=== PATIENT | male | born 1955 | race Caucasian/White ===

== ENCOUNTER 2020-10-26 11:39 | Observation (INO) | payer OTHER ==
--- NOTE | 2020-10-26 12:12 | XR ---
EXAMINATION TYPE: XR chest 2V DATE OF EXAM: 10/26/2020 COMPARISON: NONE TECHNIQUE: PA and lateral views submitted. HISTORY: Chest pain FINDINGS: Limited inspiration with volume reduction. There is patchy left lower lobe infiltrate. No overt failu re or pneumothorax. No sizable pleural effusion. Hypertrophic and degenerative change of the spine. IMPRESSION: 1. Patchy left lower lobe infiltrate.
--- NOTE | 2020-10-26 12:17 | ED ---
General Adult HPI - General Chief complaint: Chest Pain Stated complaint: Chest Pain Time Seen by Provider: 10/26/20 11:50 Source: patient, RN notes reviewed, old records reviewed Mode of arrival: ambulatory Limitations: no limitations - History of Present Illness Initial comments: 65-year-old male history of hypertension diabetes and a current smoker p resenting for evaluation of substernal chest pain. Patient describes pain as dull and heaviness. This began about 2 and half hours prior to arrival. He has no previous history of coronary artery disease. He states the pain is improved at the time my evaluation but at its onset it was quite severe. He was given aspirin nitroglycerin by EMS prior to arrival. He had associated nausea without vomiting. No diaphoresis. He had some dyspnea and lightheadedness as well. - Related Data Home Medications Medication Instructions Recorded Confirmed Aspirin EC [Ecotrin Low Dose] 81 mg PO DAILY 10/26/20 10/26/20 Cefdinir 300 mg PO Q12HR 10/26/20 10/26/20 Gabapentin [Neurontin] 600 mg PO BID 10/26/20 10/26/20 Glimepiride [Amaryl] 2 mg PO AC-BRKFST 10/26/20 10/26/20 Latanoprost [Xalatan 0.005%] 1 drop BOTH EYES HS 10/26/20 10/26/20 Metoprolol Succinate [Toprol XL] 25 mg PO DAILY 10/26/20 10/26/20 Pantoprazole Sodium [Protonix] 40 mg PO DAILY 10/26/20 10/26/20 Sertraline [Zoloft] 50 mg PO DAILY 10/26/20 10/26/20 Simvastatin [Zocor] 20 mg PO HS 10/26/20 10/26/20 Tamsulosin [Flomax] 0.4 - 0.8 mg PO HS 10/26/20 10/26/20 lisinopriL [Zestril] 10 mg PO DAILY 10/26/20 10/26/20 metFORMIN HCL [Glucophage] 1,000 mg PO BID 10/26/20 10/26/20 predniSONE [Deltasone] 20 mg PO DAILY 10/26/20 10/26/20 tiZANidine [Zanaflex] 2 - 4 mg PO BID PRN 10/26/20 10/26/20 Allergies Allergy/AdvReac Type Severity Reaction Status Date / Time No Known Allergies Allergy Verified 10/26/20 13:37 Review of Systems ROS Statement: Those systems with pertinent positive or pertinent negative responses have been documented in the HPI. ROS Other: All systems not noted in ROS Statement are negative. Past Medical History Past Medical History: Atrial Fibrillation, Cancer, Diabetes Mellitus, Hypertension Additional Past Medical History / Comment(s): CA -kidneys History of Any Multi-Drug Resistant Organisms: None Reported Past Surgical History: Ablation, Cholecystectomy, Joint Replacement Past Psychological History: Anxiety Smoking Status: Current some day smoker Past Alcohol Use History: Rare General Exam Limitations: no limitations General appearance: alert, in no apparent distress Head exam: Present: atraumatic, normocephalic Eye exam: Present: normal appearance, PERRL ENT exam: Present: normal exam Neck exam: Present: normal inspection. Absent: tenderness, meningismus Respiratory exam: Present: normal lung sounds bilaterally. Absent: respiratory distress, wheezes Cardiovascular Exam: Present: regular rate, normal rhythm GI/Abdominal exam: Present: soft. Absent: distended, tenderness Extremities exam: Present: normal inspection, normal capillary refill. Absent: pedal edema, calf tenderness Neurological exam: Present: alert, oriented X3, CN II-XII intact. Absent: motor sensory deficit Psychiatric exam: Present: normal affect, normal mood Skin exam: Present: warm, dry, intact. Absent: cyanosis, diaphoretic Course Vital Signs 10/26/20 10/26/20 10/26/20 11:46 13:30 13:57 Pulse Rate 81 66 81 Respiratory 18 18 18 Rate Blood Pressure 114/70 145/64 121/82 O2 Sat by Pulse 98 99 99 Oximetry - Reevaluation(s) Reevaluation #1: 10/26/20 14:39 Patient recently drove from [place]. In the setting of prolonged sitting and high elevated d-dimer, CT angiography is performed which is negative for pulmonary embolism, does show pulmonary nodules with which will require follow-up as well as question of pneumonia. Patient had no preceding cough and dyspnea. No fever. No leukocytosis. Coronavirus test will be performed. EKG Findings - EKG Comments: EKG Findings:: Normal sinus rhythm with arrhythmia, right bundle branch block left anterior fascicular block no ST segment elevation. Ventricular rate of 88, [place] interval 166, QRS duration 124, QTC 515 Medical Decision Making - Medical Decision Making 65-year-old male with an episode of chest pain. Resolved on reevaluation in the emergency department. Workup reveals normal white blood cell count, so hemoglobin 12 with no baseline for comparison. He has a high elevated d-dimer and CT angiography was performed. His magnesium is 1.2 which is replaced. Troponin is negative. He had been given aspirin nitroglycerin by EMS prior to arrival. He will be continued on aspirin. He will be admitted for serial cardiac enzymes, telemetry, cardiology consultation. Case discussed with Dr. Armenta will admit. - Lab Data Result diagrams: 10/26/20 11:57 10/26/20 11:57 Lab Results 10/26/20 10/26/20 10/26/20 Range/Units 11:57 11:57 11:57 WBC 5.2 (3.8-10.6) k/uL RBC 4.40 (4.30-5.90) m/uL Hgb 12.0 L (13.0-17.5) gm/dL Hct 36.7 L (39.0-53.0) % MCV 83.3 (80.0-100.0) fL MCH 27.1 (25.0-35.0) pg MCHC 32.6 (31.0-37.0) g/dL RDW 16.4 H (11.5-15.5) % Plt Count 106 L (150-450) k/uL MPV 9.0 Neutrophils % 85 % Lymphocytes % 9 % Monocytes % 3 % Eosinophils % 3 % Basophils % 0 % Neutrophils # 4.4 (1.3-7.7) k/uL Lymphocytes # 0.5 L (1.0-4.8) k/uL Monocytes # 0.2 (0-1.0) k/uL Eosinophils # 0.1 (0-0.7) k/uL Basophils # 0.0 (0-0.2) k/uL Anisocytosis Slight PT 11.0 (9.0-12.0) sec INR 1.0 (<1.2) APTT 21.1 L (22.0-30.0) sec D-Dimer 14.57 H (<0.60) mg/L FEU Sodium 136 L (137-145) mmol/L Potassium 3.8 (3.5-5.1) mmol/L Chloride 105 (98-107) mmol/L Carbon Dioxide 24 (22-30) mmol/L Anion Gap 7 mmol/L BUN 16 (9-20) mg/dL Creatinine 1.08 (0.66-1.25) mg/dL Est GFR (CKD-EPI)AfAm 84 (>60 ml/min/1.73 sqM) Est GFR (CKD-EPI)NonAf 73 (>60 ml/min/1.73 sqM) Glucose 142 H (74-99) mg/dL Calcium 8.1 L (8.4-10.2) mg/dL Magnesium 1.2 L (1.6-2.3) mg/dL Total Bilirubin 0.4 (0.2-1.3) mg/dL AST 36 (17-59) U/L ALT 22 (4-49) U/L Alkaline Phosphatase 95 (38-126) U/L Troponin I (0.000-0.034) ng/mL NT-Pro-B Natriuret Pep pg/mL Total Protein 5.5 L (6.3-8.2) g/dL Albumin 2.9 L (3.5-5.0) g/dL Lipase 60 (23-300) U/L 10/26/20 10/26/20 Range/Units 11:57 11:57 WBC (3.8-10.6) k/uL RBC (4.30-5.90) m/uL Hgb (13.0-17.5) gm/dL Hct (39.0-53.0) % MCV (80.0-100.0) fL MCH (25.0-35.0) pg MCHC (31.0-37.0) g/dL RDW (11.5-15.5) % Plt Count (150-450) k/uL MPV Neutrophils % % Lymphocytes % % Monocytes % % Eosinophils % % Basophils % % Neutrophils # (1.3-7.7) k/uL Lymphocytes # (1.0-4.8) k/uL Monocytes # (0-1.0) k/uL Eosinophils # (0-0.7) k/uL Basophils # (0-0.2) k/uL Anisocytosis PT (9.0-12.0) sec INR (<1.2) APTT (22.0-30.0) sec D-Dimer (<0.60) mg/L FEU Sodium (137-145) mmol/L Potassium (3.5-5.1) mmol/L Chloride (98-107) mmol/L Carbon Dioxide (22-30) mmol/L Anion Gap mmol/L BUN (9-20) mg/dL Creatinine (0.66-1.25) mg/dL Est GFR (CKD-EPI)AfAm (>60 ml/min/1.73 sqM) Est GFR (CKD-EPI)NonAf (>60 ml/min/1.73 sqM) Glucose (74-99) mg/dL Calcium (8.4-10.2) mg/dL Magnesium (1.6-2.3) mg/dL Total Bilirubin (0.2-1.3) mg/dL AST (17-59) U/L ALT (4-49) U/L Alkaline Phosphatase (38-126) U/L Troponin I <0.012 (0.000-0.034) ng/mL NT-Pro-B Natriuret Pep 373 pg/mL Total Protein (6.3-8.2) g/dL Albumin (3.5-5.0) g/dL Lipase (23-300) U/L Disposition Clinical Impression: Chest pain Disposition: ADMITTED IP TO THIS [facility] Condition: Stable Is patient prescribed a controlled substance at d/c from ED?: No Referrals: Nonstaff,Physician [Primary Care Provider] - 1-2 days Decision to Admit Reason: Admit from EC Decision Date: 10/26/20 Decision Time: 14:41
[2020-10-26 12:18] LABS: Albumin 2.9 g/dL (3.5-5.0); Calcium 8.1 mg/dL (8.4-10.2); Magnesium 1.2 mg/dL (1.6-2.3); Potassium 3.8 mmol/L (3.5-5.1); Total Bilirubin 0.4 mg/dL (0.2-1.3); Total Protein 5.5 g/dL (6.3-8.2)
[2020-10-26 12:36] LABS: Anisocytosis Slight; Basophils % (A) 0 %; Eosinophils # (A) 0.1 k/uL (0-0.7); Eosinophils % (A) 3 %; HCT 36.7 % (39.0-53.0); Lymphocytes # (A) 0.5 k/uL (1.0-4.8); Lymphocytes % (A) 9 %; MCH 27.1 pg (25.0-35.0); MCHC 32.6 g/dL (31.0-37.0); MCV 83.3 fL (80.0-100.0); Monocytes # (A) 0.2 k/uL (0-1.0); Monocytes % (A) 3 %; Neutrophils # (A) 4.4 k/uL (1.3-7.7); Neutrophils % (A) 85 %; Platelet Count 106 k/uL (150-450); RDW 16.4 % (11.5-15.5); WBC 5.2 k/uL (3.8-10.6)
[2020-10-26 12:46] LABS: D-Dimer 14.57 mg/L FEU (<0.60); Partial Thromboplastin Time 21.1 sec (22.0-30.0)
--- NOTE | 2020-10-26 14:15 | CT ---
EXAMINATION TYPE: CT angio chest DATE OF EXAM: 10/26/2020 1:32 PM COMPARISON: None HISTORY: Chest pain, HELIO CT DLP: 534.8 mGycm Automated exposure control for dose reduction was used. CONTRAST: CTA scan of the thorax is performed with IV Contrast, patient injected with 75 mL of Isovue 370, pulm onary embolism protocol. . FINDINGS: LUNGS: Patchy infiltrate in the lingular segment of the left upper lobe and bilateral subsegmental lo wer lobe consolidation. No pleural effusion or pneumothorax. There is a subpleural nodule measuring 6 mm in the anterior segment of the right upper lobe which is indeterminate. Additional 2 mm nodule guo perior segment right lower lobe axial image 59. MEDIASTINUM: There is satisfactory enhancement of the pulmonary artery and its branches, there is no CT evidence for pulmonary embolism. There are no greater than 1 cm hilar or mediastinal lymph nodes. Coronary artery calcification is seen. There is a trace amount of pericardial fluid. Aorta of normal caliber. OTHER: Hypertrophic and degenerative changes of the spine. IMPRESSION: 1. Patchy bilateral infiltrate correlate for pneumonia or pneumonitis. 2. Subcentimeter pulmonary nodules. Recommend 3 month follow-up CT scan to to assess for stability. 3. Coronary artery calcification correlate clinically.
[2020-10-26] MEDS: MAGNESIUM SULFATE-D5W PMX 1 GM in DEXTROSE/WATER 1 100ML.BAG IVPB SCH ×2 (14:26→16:21)
[2020-10-26] MEDS ORDERED: MORPHINE SULFATE 4 MG/ML SYRINGE IV PRN (14:38)
[2020-10-26] MEDS ORDERED: NITROGLYCERIN SL TABS 0.4 MG TAB SUBLINGUAL PRN (14:38)
[2020-10-26] MEDS ORDERED: ACETAMINOPHEN TAB 325 MG TAB PO PRN (14:38)
[2020-10-26] MEDS ORDERED: NALOXONE 0.4 MG/ML 1 ML VIAL IV PRN (14:38)
[2020-10-26 14:43] LABS: Glucose,Whole Blood 130 mg/dL (75-99)
--- NOTE | 2020-10-26 15:32 | P.HPIM ---
History of Present Illness H&P Date: 10/26/20 Chief Complaint: Chest pain This is a 65-year-old male with past medical history noted below significant for essential hypertension and type 2 diabetes who presented to the emergency room with chest pain. Patient said that he woke up this morning with pain that he described as heaviness in the middle of his chest with no radiation. Patient denies shortness of breath or diaphoresis. He reported that the pain at worst was 8 out of 10 in severity. Patient denies any prior cardiac history. He said that he had a stress couple of years ago prior to the pandemic that was reported negative to him. He is currently chest pain-free. He was evaluated in the ER and will be placed on observation for further management. Review of Systems Review of system: 14 points review of systems were obtained and were negative except to what were mentioned in the HPI. Past Medical History Past Medical History: Atrial Fibrillation, Cancer, Diabetes Mellitus, Hypertension Additional Past Medical History / Comment(s): CA -kidneys History of Any Multi-Drug Resistant Organisms: None Reported Past Surgical History: Ablation, Cholecystectomy, Joint Replacement Past Psychological History: Anxiety Smoking Status: Current some day smoker Past Alcohol Use History: Rare Medications and Allergies Home Medications Medication Instructions Recorded Confirmed Type Aspirin EC [Ecotrin Low Dose] 81 mg PO DAILY 10/26/20 10/26/20 History Cefdinir 300 mg PO Q12HR 10/26/20 10/26/20 History Gabapentin [Neurontin] 600 mg PO BID 10/26/20 10/26/20 History Glimepiride [Amaryl] 2 mg PO AC-BRKFST 10/26/20 10/26/20 History Latanoprost [Xalatan 0.005%] 1 drop BOTH EYES 10/26/20 10/26/20 History Metoprolol Succinate [Toprol XL] 25 mg PO DAILY 10/26/20 10/26/20 History Pantoprazole Sodium [Protonix] 40 mg PO DAILY 10/26/20 10/26/20 History Sertraline [Zoloft] 50 mg PO DAILY 10/26/20 10/26/20 History Simvastatin [Zocor] 20 mg PO HS 10/26/20 10/26/20 History Tamsulosin [Flomax] 0.4 - 0.8 mg PO HS 10/26/20 10/26/20 History lisinopriL [Zestril] 10 mg PO DAILY 10/26/20 10/26/20 History metFORMIN HCL [Glucophage] 1,000 mg PO BID 10/26/20 10/26/20 History predniSONE [Deltasone] 20 mg PO DAILY 10/26/20 10/26/20 History tiZANidine [Zanaflex] 2 - 4 mg PO BID PRN 10/26/20 10/26/20 History Allergies Allergy/AdvReac Type Severity Reaction Status Date / Time No Known Allergies Allergy Verified 10/26/20 13:37 Physical Exam Vitals: Vital Signs Pulse Resp BP Pulse Ox 10/26/20 14:46 75 18 113/67 98 10/26/20 13:57 81 18 121/82 99 10/26/20 13:30 66 18 145/64 99 10/26/20 11:46 81 18 114/70 98 Intake and Output 10/26/20 10/26/20 10/26/20 06:59 14:59 22:59 Other: Weight 106.594 kg General: The patient is awake and alert, in no distress Eye: there is normal conjunctiva bilaterally. Neck: The neck is supple, there is no JVD. Cardiovascular: Normal S1-S2, no S3-S4, no murmurs. Respiratory: Lungs clear to auscultation bilaterally Gastrointestinal: Abdomen is soft, nontender Musculoskeletal: There is no pedal edema. Neurological:. Speech is normal. Skin: Skin is warm and dry Results CBC & Chem 7: 10/26/20 11:57 10/26/20 11:57 Labs: Abnormal Lab Results - Last 24 Hours (Table) 10/26/20 10/26/20 10/26/20 Range/Units 11:57 11:57 11:57 Hgb 12.0 L (13.0-17.5) gm/dL Hct 36.7 L (39.0-53.0) % RDW 16.4 H (11.5-15.5) % Plt Count 106 L (150-450) k/uL Lymphocytes # 0.5 L (1.0-4.8) k/uL APTT 21.1 L (22.0-30.0) sec D-Dimer 14.57 H (<0.60) mg/L FEU Sodium 136 L (137-145) mmol/L Glucose 142 H (74-99) mg/dL POC Glucose (mg/dL) (75-99) mg/dL Calcium 8.1 L (8.4-10.2) mg/dL Magnesium 1.2 L (1.6-2.3) mg/dL Total Protein 5.5 L (6.3-8.2) g/dL Albumin 2.9 L (3.5-5.0) g/dL 10/26/20 Range/Units 14:41 Hgb (13.0-17.5) gm/dL Hct (39.0-53.0) % RDW (11.5-15.5) % Plt Count (150-450) k/uL Lymphocytes # (1.0-4.8) k/uL APTT (22.0-30.0) sec D-Dimer (<0.60) mg/L FEU Sodium (137-145) mmol/L Glucose (74-99) mg/dL POC Glucose (mg/dL) 130 H (75-99) mg/dL Calcium (8.4-10.2) mg/dL Magnesium (1.6-2.3) mg/dL Total Protein (6.3-8.2) g/dL Albumin (3.5-5.0) g/dL Assessment and Plan Assessment: 1. Chest pain: With typical and atypical features. 12-lead EKG showed no acute ischemic changes. Initial troponin is negative. 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 2. Elevated d-dimer, CT angiogram of the chest in the ER shows negative for PE. I would obtain ultrasound of the lower extremity to rule out DVT. 3. Suspected community-acquired pneumonia: With bilateral infiltrate noted on CT. I'll start patient on IV ceftriaxone and azithromycin. Obtain pro- calcitonin. COVID-19 screen negative. 4. Type 2 diabetes hold oral medication and continue sliding scale insulin 5. Tobacco abuse, counseled extensively to quit 6. Essential hypertension: Blood pressure within acceptable range 7. DVT prophylaxis with subcu Lovenox
[2020-10-26] MEDS ORDERED: AZITHROMYCIN 500 MG TAB PO ONE (15:45)
[2020-10-26 17:36] LABS: Glucose,Whole Blood 158 mg/dL (75-99)
--- NOTE | 2020-10-26 17:54 | US ---
EXAMINATION TYPE: US venous doppler duplex LE DATE OF EXAM: 10/26/2020 3:29 PM COMPARISON: NONE CLINICAL HISTORY: Elevated d-dimer. Exam done portable. SIDE PERFORMED: Bilateral TECHNIQUE: The lower extremity deep venous system is examined utilizing real time linear array sonog holger with graded compression, doppler sonography and color-flow sonography. VESSELS IMAGED: Common Femoral Vein Deep Femoral Vein Greater Saphenous Vein * Femoral Vein Popliteal Vein Small Saphenous Vein * Proximal Calf Veins (* superficial vessels) Right Leg: Appears negative for DVT Left Leg: Appears negative for DVT IMPRESSION: No evidence of deep vein thrombosis in both legs.
[2020-10-26] MEDS: INSULIN ASPART (NovoLOG) 100 UNIT/ML VIAL SQ SCH ×2 (18:24→20:57)
[2020-10-26 20:03] LABS: Glucose,Whole Blood 180 mg/dL (75-99)
[2020-10-26] MEDS: GABAPENTIN 300 MG CAP PO SCH (20:57)
[2020-10-26] MEDS ORDERED: TAMSULOSIN 0.4 MG CAP.ER.24H PO SCH (21:00)
[2020-10-26] MEDS ORDERED: LATANOPROST 0.005% OPHTH DROPS 2.5 ML BTL BOTH EYES SCH (21:00)
[2020-10-27 07:03] LABS: Glucose,Whole Blood 110 mg/dL (75-99)
[2020-10-27] MEDS ORDERED: PANTOPRAZOLE 40 MG TABLET PO SCH (07:30)
[2020-10-27] MEDS: INSULIN ASPART (NovoLOG) 100 UNIT/ML VIAL SQ SCH ×2 (07:47→12:04)
[2020-10-27 07:58] VITALS: BP 150/77; PULSE 62; RESP 16; TEMP 98.1
[2020-10-27] MEDS: GABAPENTIN 300 MG CAP PO SCH (07:59)
[2020-10-27] MEDS ORDERED: ENOXAPARIN 40 MG/0.4 ML SYRINGE SQ SCH (09:00)
[2020-10-27] MEDS ORDERED: SERTRALINE 50 MG TAB PO SCH (09:00)
[2020-10-27] MEDS ORDERED: lisinopriL 10 MG TAB PO SCH (09:00)
[2020-10-27] MEDS ORDERED: METOPROLOL SUCCINATE (ER) 25 MG TAB.ER.24H PO SCH (09:00)
[2020-10-27] MEDS ORDERED: ASPIRIN 325 MG TAB PO SCH (09:00)
--- NOTE | 2020-10-27 09:59 | P.CRDCN ---
History of Present Illness History of present illness: HISTORY OF PRESENTING ILLNESS This is a pleasant 65-year-old with past medical history significant for hypertension, hyperlipidemia, diabetes mellitus type 2, obesity, occasional tobacco abuse, paroxysmal atrial fibrillation status post ablation. He follows in the office with a loss control manager in [place] as he is from [place] and only here in [place] to visit for a . Patient states she had been feeling in his normal state of health up until yesterday when he started having diarrhea. He states he was placed on antibiotics as well as steroids 2 days ago secondary to mild congestion. He was having diarrhea and upset stomach and then noticed epigastric, lower substernal chest achy sensation. It was associated with some mild nausea and felt somewhat better with a deep breath in. He denies any association with any exertion, no diaphoresis, no shortness breath. He admits to some prior episodes which occur maybe once a year. Normally does not have GERD or upset stomach however he was recently placed on antibiotics. He was given aspirin and nitroglycerin in the EMS without any real response and then chest pain slowly resolved over the course of a few hours and emergency d epartment. He currently denies any chest pain or pressure and states he feels well, back to his normal self. Blood work was performed with normal troponin, elevated d-dimer and therefore CTA was performed. CTA showed bilateral infiltrates concerning for pneumonia or pneumonitis. There is also mention of coronary artery calcification. EKG showed sinus rhythm with right bundle branch block, nonspecific ST, T-wave abnormalities. REVIEW OF SYSTEMS At the time of my exam: CONSTITUTIONAL: Denies fever or chills. CARDIOVASCULAR: +chest pain, no shortness of breath, orthopnea, PND or palpitations. RESPIRATORY: Denies cough. GASTROINTESTINAL: Denies abdominal pain, diarrhea, constipation, nausea or vomiting. MUSCULOSKELETAL: Denies myalgias. NEUROLOGIC: Denies numbness, tingling or weakness. ENDOCRINE: Denies fatigue, weight change, polydipsia or polyurina. GENITOURINARY: Denies burning, hematuria or urgency with micturation. HEMATOLOGIC: Denies history of anemia or bleeding. PHYSICAL EXAMINATION Vital signs reviewed. CONSTITUTIONAL: No apparent distress. HEENT: Head is normocephalic. Pupils are equal, round. Sclerae anicteric. Mucous membranes of the mouth are moist. No JVD. No carotid bruit. CHEST EXAMINATION: Lungs are clear to auscultation. No chest wall tenderness is noted on palpation or with deep breathing. HEART EXAMINATION: Regular rate and rhythm. S1, S2 heard. No murmurs, gallops or rub. ABDOMEN: Soft, nontender. Positive bowel sounds. EXTREMITIES: 2+ peripheral pulses, no lower extremity edema and no calf tenderness. NEUROLOGIC EXAMINATION: Patient is awake, alert and oriented x3. ASSESSMENT 1. Atypical epigastric, lower chest pain likely related to GI source from recent antibiotics, steroids associated with diarrhea. No sign of acute coronary syndrome 2. Diabetes mellitus type 2 3. Coronary artery calcification seen on CTA 4. Bilateral infiltrates concerning for pneumonia versus pneumonitis, on outpatient antibiotics, steroids 5. Essential hypertension 6. Hyperlipidemia 7. Paroxysmal atrial fibrillation status post ablation PLAN Patient's pain is atypical and started with diarrhea and then upset stomach with more epigastric achy sensation improved with deep breaths and. Suspect mainly a GI source related to his recent steroids and antibiotics. He not suspect acute coronary syndrome. Discussed possible stress testing versus outpatient follow- up with stress testing and patient will like to follow up with his loss control manager in [place] which is reasonable. Continue with current medical regimen. OK for discharge from a cardiology standpoint. Past Medical History Past Medical History: Atrial Fibrillation, Cancer, Diabetes Mellitus, Hypertension Additional Past Medical History / Comment(s): CA -kidneys History of Any Multi-Drug Resistant Organisms: None Reported Past Surgical History: Ablation, Cholecystectomy, Joint Replacement Past Anesthesia/Blood Transfusion Reactions: No Reported Reaction Past Psychological History: Anxiety Smoking Status: Current some day smoker Past Alcohol Use History: Rare Medications and Allergies Home Medications Medication Instructions Recorded Confirmed Type Aspirin EC [Ecotrin Low Dose] 81 mg PO DAILY 10/26/20 10/26/20 History Cefdinir 300 mg PO Q12HR 10/26/20 10/26/20 History Gabapentin [Neurontin] 600 mg PO BID 10/26/20 10/26/20 History Glimepiride [Amaryl] 2 mg PO AC-BRKFST 10/26/20 10/26/20 History Latanoprost [Xalatan 0.005%] 1 drop BOTH EYES HS 10/26/20 10/26/20 History Metoprolol Succinate [Toprol XL] 25 mg PO DAILY 10/26/20 10/26/20 History Pantoprazole Sodium [Protonix] 40 mg PO DAILY 10/26/20 10/26/20 History Sertraline [Zoloft] 50 mg PO DAILY 10/26/20 10/26/20 History Simvastatin [Zocor] 20 mg PO HS 10/26/20 10/26/20 History Tamsulosin [Flomax] 0.4 - 0.8 mg PO HS 10/26/20 10/26/20 History lisinopriL [Zestril] 10 mg PO DAILY 10/26/20 10/26/20 History metFORMIN HCL [Glucophage] 1,000 mg PO BID 10/26/20 10/26/20 History predniSONE [Deltasone] 20 mg PO DAILY 10/26/20 10/26/20 History tiZANidine [Zanaflex] 2 - 4 mg PO BID PRN 10/26/20 10/26/20 History Allergies Allergy/AdvReac Type Severity Reaction Status Date / Time No Known Allergies Allergy Verified 10/26/20 13:37 Physical Exam Vitals: Vital Signs Temp Pulse Pulse Pulse Resp BP BP 10/27/20 07:00 98.1 F 62 16 150/77 10/27/20 01:50 19 10/27/20 01:31 98.7 F 71 18 130/67 10/26/20 19:30 22 10/26/20 19:12 98.2 F 67 22 145/73 10/26/20 15:00 97.6 F 56 L 18 146/82 10/26/20 14:46 75 18 113/67 10/26/20 13:57 81 18 121/82 10/26/20 13:30 66 18 145/64 10/26/20 11:46 81 18 114/70 Pulse Ox 10/27/20 07:00 95 10/27/20 01:50 10/27/20 01:31 95 10/26/20 19:30 10/26/20 19:12 98 10/26/20 15:00 98 10/26/20 14:46 98 10/26/20 13:57 99 10/26/20 13:30 99 10/26/20 11:46 98 Intake and Output 10/26/20 10/27/20 10/27/20 22:59 06:59 14:59 Intake Total 118 Balance 118 Intake: Oral 118 Other: # Voids 1 1 Results 10/26/20 11:57 05/15/21 11:57 Cardiac Enzymes 10/26/20 10/26/20 10/26/20 Range/Units 11:57 11:57 15:03 AST 36 (17-59) U/L Troponin I <0.012 <0.012 (0.000-0.034) ng/mL 10/26/20 Range/Units 17:45 AST (17-59) U/L Troponin I <0.012 (0.000-0.034) ng/mL Coagulation 10/26/20 Range/Units 11:57 PT 11.0 (9.0-12.0) sec APTT 21.1 L (22.0-30.0) sec CBC 10/26/20 Range/Units 11:57 WBC 5.2 (3.8-10.6) k/uL RBC 4.40 (4.30-5.90) m/uL Hgb 12.0 L (13.0-17.5) gm/dL Hct 36.7 L (39.0-53.0) % Plt Count 106 L (150-450) k/uL Comprehensive Metabolic Panel 10/26/20 Range/Units 11:57 Sodium 136 L (137-145) mmol/L Potassium 3.8 (3.5-5.1) mmol/L Chloride 105 (98-107) mmol/L Carbon Dioxide 24 (22-30) mmol/L BUN 16 (9-20) mg/dL Creatinine 1.08 (0.66-1.25) mg/dL Glucose 142 H (74-99) mg/dL Calcium 8.1 L (8.4-10.2) mg/dL AST 36 (17-59) U/L ALT 22 (4-49) U/L Alkaline Phosphatase 95 (38-126) U/L Total Protein 5.5 L (6.3-8.2) g/dL Albumin 2.9 L (3.5-5.0) g/dL Current Medications Generic Name Dose Route Start Last Admin Trade Name Freq PRN Reason Stop Dose Admin Acetaminophen 650 mg 10/26/20 14:38 Acetaminophen Tab 325 Mg Tab PO Q6HR PRN Mild Pain or Fever > 100.5 Aspirin 325 mg 10/27/20 09:00 10/27/20 07:59 Aspirin 325 Mg Tab PO 325 mg DAILY CORIN Administration Azithromycin 500 mg 10/27/20 12:00 Azithromycin 500 Mg Tab PO DAILY@1200 CORIN Enoxaparin Sodium 40 mg 10/27/20 09:00 10/27/20 07:58 Enoxaparin 40 Mg/0.4 Ml Syringe SQ 40 mg DAILY CORIN Administration Gabapentin 600 mg 10/26/20 21:00 10/27/20 07:59 Gabapentin 300 Mg Cap PO 600 mg BID CORIN Administration Insulin Aspart 0 unit 10/26/20 17:30 10/27/20 07:47 Insulin Aspart (Novolog) 100 Unit/Ml Vial SQ Not Given ACHS [facility] Protocol Latanoprost 1 drops 10/26/20 21:00 10/26/20 22:19 Latanoprost 0.005% Ophth Drops 2.5 Ml Btl BOTH EYES 1 drops HS CORIN Administration Lisinopril 10 mg 10/27/20 09:00 10/27/20 07:59 Lisinopril 10 Mg Tab PO 10 mg DAILY CORIN Administration Metoprolol Succinate 25 mg 10/27/20 09:00 10/27/20 07:59 Metoprolol Succinate (Er) 25 Mg Tab.Er.24h PO 25 mg DAILY [facility] Administration Morphine Sulfate 4 mg 10/26/20 14:38 Morphine Sulfate 4 Mg/Ml Syringe IV Q4HR PRN Severe Pain Naloxone HCl 0.2 mg 10/26/20 14:38 Naloxone 0.4 Mg/Ml 1 Ml Vial IV Q2M PRN Opioid Reversal Nitroglycerin 0.4 mg 10/26/20 14:38 Nitroglycerin Sl Tabs 0.4 Mg Tab SUBLINGUAL Q5M PRN Chest Pain Pantoprazole Sodium 40 mg 10/27/20 07:30 10/27/20 07:59 Pantoprazole 40 Mg Tablet PO 40 mg AC-BRKFST [facility] Administration Sertraline HCl 50 mg 10/27/20 09:00 10/27/20 07:59 Sertraline 50 Mg Tab PO 50 mg DAILY [facility] Administration Tamsulosin HCl 0.4 mg 10/26/20 21:00 10/26/20 20:57 Tamsulosin 0.4 Mg Cap.Er.24h PO 0.4 mg HS CORIN Administration Intake and Output 10/26/20 10/27/20 10/27/20 22:59 06:59 14:59 Intake Total 118 Balance 118 Intake: Oral 118 Other: # Voids 1 1 10/26/20 11:57 10/26/20 11:57
[2020-10-27 10:36] LABS: African American GFR (CKD) 92.4 (60.0-200.0); Magnesium 1.6 mg/dL (1.5-2.4); Non-African American GFR(CKD) 79.7 (60.0-200.0); Potassium 3.9 mmol/L (3.5-5.5)
--- NOTE | 2020-10-27 11:50 | P.DS ---
Providers Date of admission: 10/26/20 14:35 Expected date of discharge: 10/27/20 Attending physician: Aide Armenta Consults: 10/26/20 14:38 Consult Physician Routine Consulting Provider: Adalberto Paulson Consult Reason/Comments: CP Do you want consulting provider notified?: Yes Primary care physician: Physician Nonstaff Hospital Course: This is a 65-year-old male with past medical history noted below that presented to the emergency room with chest discomfort. Patient was evaluated in the ER and placed on observation for further management of his medical problems noted below. 1. Chest pain: With typical and atypical features. 12-lead EKG showed no acute ischemic changes. Serial troponin negative. Patient was seen and evaluated by cardiology. They thought to be atypical. No further testing recommended at this time. 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 Elevated d-dimer, CT angiogram of the chest in the ER shows negative for PE. ultrasound of the lower extremity negative for DVT 3. Community-acquired pneumonia: With bilateral infiltrate noted on CT. patient is already on antibiotic at home with Ceftin, continue course. COVID-19 screen negative. 4. Type 2 diabetes resume home medications 5. Tobacco abuse, counseled extensively to quit 6. Essential hypertension: Blood pressure within acceptable range Patient will be discharged home in a stable condition. For further details about this hospitalization please refer to the electronic chart. Time spent on discharge > 30 minutes including counseling and coordination of care Patient Condition at Discharge: Stable Plan - Discharge Summary Discharge Rx Participant: No New Discharge Prescriptions: New Atorvastatin Calcium [Lipitor] 20 mg PO HS #30 tab Continue tiZANidine [Zanaflex] 2 - 4 mg PO BID PRN PRN Reason: Muscle Spasm Tamsulosin [Flomax] 0.4 - 0.8 mg PO HS Aspirin EC [Ecotrin Low Dose] 81 mg PO DAILY Sertraline [Zoloft] 50 mg PO DAILY Metoprolol Succinate [Toprol XL] 25 mg PO DAILY metFORMIN HCL [Glucophage] 1,000 mg PO BID lisinopriL [Zestril] 10 mg PO DAILY Latanoprost [Xalatan 0.005%] 1 drop BOTH EYES HS Glimepiride [Amaryl] 2 mg PO AC-BRKFST Gabapentin [Neurontin] 600 mg PO BID Cefdinir 300 mg PO Q12HR Pantoprazole Sodium [Protonix] 40 mg PO DAILY Discontinued predniSONE [Deltasone] 20 mg PO DAILY Simvastatin [Zocor] 20 mg PO HS Discharge Medication List Aspirin EC [Ecotrin Low Dose] 81 mg PO DAILY 10/26/20 [History] Cefdinir 300 mg PO Q12HR 10/26/20 [History] Gabapentin [Neurontin] 600 mg PO BID 10/26/20 [History] Glimepiride [Amaryl] 2 mg PO AC-BRKFST 10/26/20 [History] Latanoprost [Xalatan 0.005%] 1 drop BOTH EYES HS 10/26/20 [History] Metoprolol Succinate [Toprol XL] 25 mg PO DAILY 10/26/20 [History] Pantoprazole Sodium [Protonix] 40 mg PO DAILY 10/26/20 [History] Sertraline [Zoloft] 50 mg PO DAILY 10/26/20 [History] Tamsulosin [Flomax] 0.4 - 0.8 mg PO HS 10/26/20 [History] lisinopriL [Zestril] 10 mg PO DAILY 10/26/20 [History] metFORMIN HCL [Glucophage] 1,000 mg PO BID 10/26/20 [History] tiZANidine [Zanaflex] 2 - 4 mg PO BID PRN 10/26/20 [History] Atorvastatin Calcium [Lipitor] 20 mg PO HS #30 tab 10/27/20 [Rx] Follow up Appointment(s)/Referral(s): Nonstaff,Physician [Primary Care Provider] - 1-2 days Discharge Disposition: HOME SELF-CARE
[2020-10-27] MEDS ORDERED: AZITHROMYCIN 500 MG TAB PO SCH (12:00)
[2020-10-27 12:05] LABS: Glucose,Whole Blood 153 mg/dL (75-99)
== END 2020-10-27 12:20 | disposition home or self-care (01) ==
LOC: EC 11:39 → 6NMEDSUR 14:35
PROVIDERS: ADMIT Internal Medicine; ATTEND Internal Medicine
DX: R07.89 Other chest pain (principal); J18.9 Pneumonia, unspecified organism; I48.0 Paroxysmal atrial fibrillation; R79.89 Other specified abnormal findings of blood chemistry; E11.9 Type 2 diabetes mellitus without complications; I25.10 Atherosclerotic heart disease of native coronary artery without angina pectoris; I45.2 Bifascicular block; I10 Essential (primary) hypertension; E78.5 Hyperlipidemia, unspecified; T38.0X5A Adverse effect of glucocorticoids and synthetic analogues, initial encounter; R19.7 Diarrhea, unspecified; K30 Functional dyspepsia; R10.13 Epigastric pain; F41.9 Anxiety disorder, unspecified; R91.8 Other nonspecific abnormal finding of lung field; F17.200 Nicotine dependence, unspecified, uncomplicated; Z20.822 Contact with and (suspected) exposure to COVID-19; Z79.82 Long term (current) use of aspirin; Z79.4 Long term (current) use of insulin; Z79.899 Other long term (current) drug therapy; Z85.528 Personal history of other malignant neoplasm of kidney; Z90.49 Acquired absence of other specified parts of digestive tract; Z96.60 Presence of unspecified orthopedic joint implant
CPT/HCPCS: 96366 ×2; 96372; 93005 ×2; 96365; 99285; 36415; 85379; 83880; 80053; 80048; 83690; 83735 ×2; 84484; 85025; 85610; 85730; 84145; 87635; 71046; 93970; 71275; G0378 ×2; J1650; J3475; Q9967